=== PATIENT | female | born 1980 | race Caucasian/White ===

== ENCOUNTER 2019-07-03 12:25 | Inpatient (IN) | payer BC ==
[2019-07-03 12:41] VITALS: BMI 34.2
[2019-07-03] MEDS ORDERED: chlordiazePOXIDE HCL 25 MG CAPSULE PO SCH (13:00)
--- NOTE | 2019-07-03 13:12 | HP ---
CIWA Score Nausea/Vomitin Muscle Tremors: 5 Anxiety: 2 Agitation: 5 Paroxysmal Sweats: 3 Orientation: 1-Uncertain about Date Tacttile Disturbances: 0-None Auditory Disturbances: 0-None Visual Disturbances: 0-None Headache: 0-None Present CIWA-Ar Total Score: 19 - Admission Criteria OASAS Guidelines: Admission for Medically Managed Detox: Requires at least one of the followin. CIWA greater than 12 2. Seizures within the past 24 hours 3. Delirium tremens within the past 24 hours 4. Hallucinations within the past 24 hours 5. Acute intervention needed for co occurring medical disorder 6. Acute intervention needed for co occurring psychiatric disorder 7. Severe withdrawal that cannot be handled at a lower level of care (continued vomiting, continued diarrhea, abnormal vital signs) requiring intravenous medication and/or fluids 8. Admitting History and Physical - Admission Chief Complaint: "I want to stop drinking and get better." History of Present Illness: 39 year old female with history of alcohol dependence s/p intoxication 1 day ago and sent from [place] [facility] to [facility] for detox. She had an alcohol level of 498 yesterday at [place] [facility]. She also had an elevated lipase and elevated slight glucose. She admits to drinking 1 pint of vodka daily last drank yesterday prior to going to [place] [facility]. PMH: None Psurg: C/S X3 Never smoked ciggarettes. 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 History of Recent Travel: No Admission ROS [facility] Allergies/Adverse Reactions: Allergies Allergy/AdvReac Type Severity Reaction Status Date / Time No Known Allergies Allergy Verified 07/03/19 12:38 Exam Limitations: No Limitations - Ebola screening Have you traveled outside of the country in the last 21 days: No Have you had contact with anyone from an Ebola affected area: No Have you been sick,other than usual withdrawal symptoms: No Do you have a fever: No - Review of Systems Constitutional: Chills, Diaphoresis EENT: reports: No Symptoms Reported Respiratory: reports: No Symptoms reported Cardiac: reports: No Symptoms Reported GI: reports: No Symptoms Reported : reports: No Symptoms Reported Musculoskeletal: reports: No Symptoms Reported Integumentary: reports: No Symptoms Reported Neuro: reports: No Symptoms reported Endocrine: reports: No Symptoms Reported Hematology: reports: No Symptoms Reported Psychiatric: reports: Judgement Intact, Mood/Affect Appropiate, Orientated x3, Agitated, Anxious Other Systems: Reviewed and Negative Patient History - Patient Medical History Hx Asthma: No Hx Chronic Obstructive Pulmonary Disease (COPD): No Hx Cardiac Disorders: No Hx Hypertension: No Hx Seizures: No Hx Diabetes: No Hx Gastrointestinal Disorders: No Hx Genitourinary Disorders: No Hx Sexually Transmitted Disorders: No Hx Renal Disease (ESRD): No Hx Depression: Yes Hx Suicide Attempt: No Hx Schizophrenia: No - Patient Surgical History Past Surgical History: No - PPD History Previous Implant?: Yes Documented Results: Negative w/o proof Implanted On Prior [facility] Admission?: No Date: 07/02/19 Results: negative PPD to be Administered?: Yes - Reproductive History Last Menstrual Period: 06/18/19 Patient : No - Smoking Cessation Smoking history: Never smoked Have you smoked in the past 12 months: No Hx Chewing Tobacco Use: No Initiated information on smoking cessation: No - Substances abused Alcohol Substance route: Injection Frequency: Daily Amount used: 1 pint vodka Age of first use: 19 Date of last use: 07/03/19 Admission Physical Exam S - Vital Signs Vital Signs: Vital Signs - 24 hr 07/03/19 12:38 Temperature 97.9 F Pulse Rate 107 H Respiratory 19 Rate Blood Pressure 143/95 - Physical General Appearance: Yes: Moderate Distress, Alcohol on Breath, Tremorous, Irritable, Sweating, Anxious HEENTM: Yes: EOMI, Hearing grossly Normal, Normal ENT Inspection, Normocephalic , Normal Voice, BERENICE, Pharynx Normal, Tm's normal Respiratory: Yes: Chest Non-Tender, Lungs Clear, Normal Breath Sounds, No Respiratory Distress, No Accessory Muscle Use Neck: Yes: No masses,lesions,Nodules, Supple, Trachea in good position Breast: Yes: Breast Exam Deferred Cardiology: Yes: Regular Rhythm, S1, S2, Tachycardia Abdominal: Yes: Non Tender, Soft, Increased Bowel Sounds, Protuberent Genitourinary: Yes: Within Normal Limits Back: Yes: Normal Inspection Musculoskeletal: Yes: full range of Motion, Gait Steady, Pelvis Stable Extremities: Yes: Normal Capillary Refill, Normal Inspection, Normal Range of Motion, Non-Tender Neurological: Yes: 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 specialist II-XII NML intact, Fully Oriented, Alert, Motor Strength 5/5, Normal Mood/Affect, Normal Response Integumentary: Yes: Normal Color, Warm Lymphatic: Yes: Within Normal Limits - Diagnostic (1) Alcohol dependence with withdrawal Current Visit: Yes Status: Acute (2) Obesity Current Visit: Yes Status: Acute (3) Anxiety disorder Current Visit: Yes Status: Acute Screened but not Admitted - Documentation of Visit Screened but not Admitted: No Breathalyzer - Breathalyzer Breathalyzer: 0.076 Urine Drug Screen - Test Device Lot number: [id number] Expiration date: 04/25/21 - Control Is test valid?: Yes - Results Drug screen NEGATIVE: Yes Inpatient Rehab Admission - Rehab Decision to Admit Inpatient rehab admission?: No
[2019-07-03] MEDS ORDERED: MELATONIN 5 MG TABLETS PO PRN (13:17)
[2019-07-03] MEDS ORDERED: ONDANSETRON *ODT* 4 MG TABLET SL PRN (13:17)
[2019-07-03] MEDS ORDERED: ACETAMINOPHEN 325 MG TABLET (FP) PO PRN ×2 (13:17)
[2019-07-03] MEDS ORDERED: BISMUTH SUBSALICYLATE 524 MG/30 ML UD PO PRN (13:17)
[2019-07-03] MEDS ORDERED: chlordiazePOXIDE HCL 10 MG CAPSULE PO PRN (13:17)
[2019-07-03] MEDS ORDERED: MAG HYDROX/AL HYDROX/SIMETH 30 ML UNIT-DOSE CUP PO PRN (13:17)
[2019-07-03] MEDS ORDERED: MAGNESIUM HYDROX 2400MG/30ML ORAL SUSPENSION 30 ML CUP PO PRN (13:17)
[2019-07-03] MEDS ORDERED: MENTHOL/PHENOL 1 EACH UD MM PRN (13:17)
[2019-07-03] MEDS ORDERED: MAGNESIUM CITRATE 300 ML BOTTLE PO PRN (13:17)
[2019-07-03] MEDS: hydrOXYzine PAMOATE 25 MG CAPSULE (FP) PO PRN (14:05)
[2019-07-03] MEDS: METHOCARBAMOL 500 MG TABLET PO PRN ×2 (14:32→22:03)
[2019-07-03] MEDS ORDERED: cloNIDine HCL 0.1 MG TABLET PO ONE (15:22)
--- NOTE | 2019-07-03 15:38 | PN ---
S Progress Note Note: pt was seen and is very shaky/sweats/anxious. Pt received 25mg of librium, roboxin, however, pt states she drinks alot and the medication is not helping. Pts librium taper was modified and increased to start with 50mg of librium. pt in agreement. continue to monitor.
[2019-07-03] MEDS: hydrOXYzine PAMOATE 50 MG CAPSULE (FP) PO PRN (17:10)
[2019-07-03 17:50] LABS: HEMATOCRIT 38.3 % (32.4-45.2); MCH 33.2 pg (25.7-33.7); MEAN CELL VOLUME 97.5 fl (80-96); MEAN PLT VOLUME 7.7 fl (7.5-11.1); PLATELET COUNT 138 K/MM3 (134-434); RBC 3.93 M/mm3 (3.60-5.2); RDW 14.2 % (11.6-15.6); WHITE BLOOD COUNT 9.1 K/mm3 (4.0-10.0)
[2019-07-03 17:59] LABS: ALBUMIN 3.8 g/dl (3.4-5.0); BLOOD UREA NITROGEN 3.6 mg/dL (7-18); CALCIUM 8.4 mg/dL (8.5-10.1); CREATININE 0.6 mg/dL (0.55-1.3); POTASSIUM 3.8 mmol/L (3.5-5.1); TOT PROT 6.8 g/dl (6.4-8.2)
[2019-07-03] MEDS: IBUPROFEN 400 MG TABLET (FP) PO PRN (20:41)
[2019-07-03] MEDS: chlordiazePOXIDE HCL 25 MG CAPSULE PO PRN (20:43)
[2019-07-03] MEDS ORDERED: THIAMINE HCL 100 MG TABLET (FP) PO SCH (22:00)
[2019-07-03] MEDS: chlordiazePOXIDE HCL 25 MG CAPSULE PO SCH (22:03)
[2019-07-04] MEDS: chlordiazePOXIDE HCL 25 MG CAPSULE PO SCH ×3 (06:31→17:39)
[2019-07-04] MEDS ORDERED: PRENATAL VITAMINS W/ FOLIC ACID TABLET (FP) PO SCH (10:00)
[2019-07-04] MEDS: METHOCARBAMOL 500 MG TABLET PO PRN ×2 (10:18→15:53)
[2019-07-04] MEDS: hydrOXYzine PAMOATE 50 MG CAPSULE (FP) PO PRN (10:18)
[2019-07-04] MEDS: IBUPROFEN 400 MG TABLET (FP) PO PRN (11:17)
--- NOTE | 2019-07-04 14:12 | PN ---
S CIWA - CIWA Score Nausea/Vomitin Muscle Tremors: 2 Anxiety: 2 Agitation: 2 Paroxysmal Sweats: 2 Orientation: 0-Oriented Tacttile Disturbances: 2-Mild Itch/Numbness/Burn Auditory Disturbances: 0-None Visual Disturbances: 0-None Headache: 2-Mild CIWA-Ar Total Score: 14 [facility] Progress Note (SOAP) Subjective: Nausea, vomiting,diarrhea, sweats, tremors back pain Objective: 07/04/19 14:10 Withdrawal sx Vital Signs - 8 hr 07/04/19 07/04/19 06:46 08:59 Temperature 97.7 F 97.3 F L Pulse Rate 70 95 H Respiratory 16 18 Rate Blood Pressure 112/79 123/94 VSS Laboratory Last Values WBC 9.1 K/mm3 (4.0-10.0) 07/03/19 13:40 RBC 3.93 M/mm3 (3.60-5.2) 07/03/19 13:40 Hgb 13.0 GM/dL (10.7-15.3) 07/03/19 13:40 Hct 38.3 % (32.4-45.2) 07/03/19 13:40 MCV 97.5 fl (80-96) H 07/03/19 13:40 MCH 33.2 pg (25.7-33.7) 07/03/19 13:40 MCHC 34.0 g/dl (32.0-36.0) 07/03/19 13:40 RDW 14.2 % (11.6-15.6) 07/03/19 13:40 Plt Count 138 K/MM3 (134-434) 07/03/19 13:40 MPV 7.7 fl (7.5-11.1) 07/03/19 13:40 Sodium 137 mmol/L (136-145) 07/03/19 13:40 Potassium 3.8 mmol/L (3.5-5.1) 07/03/19 13:40 Chloride 100 mmol/L (98-107) 07/03/19 13:40 Carbon Dioxide 26 mmol/L (21-32) 07/03/19 13:40 Anion Gap 11 MMOL/L (8-16) 07/03/19 13:40 BUN 3.6 mg/dL (7-18) L 07/03/19 13:40 Creatinine 0.6 mg/dL (0.55-1.3) 07/03/19 13:40 Est GFR (CKD-EPI)AfAm 132.14 07/03/19 13:40 Est GFR (CKD-EPI)NonAf 114.01 07/03/19 13:40 Random Glucose 89 mg/dL (74-106) 07/03/19 13:40 Calcium 8.4 mg/dL (8.5-10.1) L 07/03/19 13:40 Total Bilirubin 1.0 mg/dL (0.2-1) 07/03/19 13:40 AST 95 U/L (15-37) H 07/03/19 13:40 ALT 91 U/L (13-61) H 07/03/19 13:40 Alkaline Phosphatase 144 U/L (45-117) H 07/03/19 13:40 Total Protein 6.8 g/dl (6.4-8.2) 07/03/19 13:40 Albumin 3.8 g/dl (3.4-5.0) 07/03/19 13:40 RPR Titer Nonreactive (NONREACTIVE) 07/03/19 13:40 Labs noted, no panic values Assessment: 07/04/19 14:11 Withdrawal sx Plan: Continue detox
[2019-07-04] MEDS: chlordiazePOXIDE HCL 25 MG CAPSULE PO PRN (14:35)
[2019-07-04] MEDS: hydrOXYzine PAMOATE 25 MG CAPSULE (FP) PO PRN (15:53)
[2019-07-04 18:37] VITALS: BP 111/79; PULSE 106; TEMP 100.6
--- NOTE | 2019-07-04 19:57 | DS ---
[facility] Detox Discharge Summary Admission Date: 07/03/19 Discharge Date: 07/04/19 - History Present History: Alcohol Dependence Pertinent Past History: Depression, obesity - Physical Exam Results Vital Signs: Vital Signs Temperature 100.6 F H 07/04/19 16:53 Pulse Rate 106 H 07/04/19 16:53 Respiratory Rate 18 07/04/19 16:53 Blood Pressure 111/79 07/04/19 16:53 O2 Sat by Pulse Oximetry (%) Pertinent Admission Physical Exam Findings: Laboratory Last Values WBC 9.1 K/mm3 (4.0-10.0) 07/03/19 13:40 RBC 3.93 M/mm3 (3.60-5.2) 07/03/19 13:40 Hgb 13.0 GM/dL (10.7-15.3) 07/03/19 13:40 Hct 38.3 % (32.4-45.2) 07/03/19 13:40 MCV 97.5 fl (80-96) H 07/03/19 13:40 MCH 33.2 pg (25.7-33.7) 07/03/19 13:40 MCHC 34.0 g/dl (32.0-36.0) 07/03/19 13:40 RDW 14.2 % (11.6-15.6) 07/03/19 13:40 Plt Count 138 K/MM3 (134-434) 07/03/19 13:40 MPV 7.7 fl (7.5-11.1) 07/03/19 13:40 Sodium 137 mmol/L (136-145) 07/03/19 13:40 Potassium 3.8 mmol/L (3.5-5.1) 07/03/19 13:40 Chloride 100 mmol/L (98-107) 07/03/19 13:40 Carbon Dioxide 26 mmol/L (21-32) 07/03/19 13:40 Anion Gap 11 MMOL/L (8-16) 07/03/19 13:40 BUN 3.6 mg/dL (7-18) L 07/03/19 13:40 Creatinine 0.6 mg/dL (0.55-1.3) 07/03/19 13:40 Est GFR (CKD-EPI)AfAm 132.14 07/03/19 13:40 Est GFR (CKD-EPI)NonAf 114.01 07/03/19 13:40 Random Glucose 89 mg/dL (74-106) 07/03/19 13:40 Calcium 8.4 mg/dL (8.5-10.1) L 07/03/19 13:40 Total Bilirubin 1.0 mg/dL (0.2-1) 07/03/19 13:40 AST 95 U/L (15-37) H 07/03/19 13:40 ALT 91 U/L (13-61) H 07/03/19 13:40 Alkaline Phosphatase 144 U/L (45-117) H 07/03/19 13:40 Total Protein 6.8 g/dl (6.4-8.2) 07/03/19 13:40 Albumin 3.8 g/dl (3.4-5.0) 07/03/19 13:40 RPR Titer Nonreactive (NONREACTIVE) 07/03/19 13:40 - Medication Discharge Medications: Ambulatory Orders NK [No Known Home Medication] 07/03/19 - Diagnosis (1) Alcohol dependence with withdrawal Status: Acute (2) Anxiety disorder Status: Acute (3) Obesity Status: Acute - AMA Did Patient Leave Against Medical Advice: Yes
[2019-07-05] MEDS ORDERED: chlordiazePOXIDE HCL 25 MG CAPSULE PO SCH (05:00)
[2019-07-05] MEDS ORDERED: chlordiazePOXIDE 5 MG CAPSULE PO SCH (05:00)
[2019-07-06] MEDS ORDERED: chlordiazePOXIDE HCL 10 MG CAPSULE PO PRN
[2019-07-06] MEDS ORDERED: chlordiazePOXIDE HCL 10 MG CAPSULE PO SCH ×2 (05:00)
[2019-07-07] MEDS ORDERED: chlordiazePOXIDE HCL 10 MG CAPSULE PO ONE (05:00)
[2019-07-07] MEDS ORDERED: chlordiazePOXIDE HCL 10 MG CAPSULE PO SCH (05:00)
[2019-07-08] MEDS ORDERED: chlordiazePOXIDE HCL 10 MG CAPSULE PO ONE (05:00)
== END 2019-07-04 19:05 | disposition left against medical advice (07) | DRG 770 ==
LOC: YASAS 12:25 → Y6N 12:50
PROVIDERS: ADMIT Allergy & Immunology; ATTEND Allergy & Immunology
PROC: HZ2ZZZZ Detoxification Services for Substance Abuse Treatment (ICD-10-PCS; principal; 2019-07-03)
DX: F10.230 Alcohol dependence with withdrawal, uncomplicated (principal); F41.9 Anxiety disorder, unspecified; R00.0 Tachycardia, unspecified; E66.9 Obesity, unspecified; Z68.34 Body mass index [BMI] 34.0-34.9, adult
CPT/HCPCS: 36415; 80053; 85027; 86593; J0735